=== PATIENT | male | born 1985 | race Caucasian/White ===

== ENCOUNTER 2019-10-16 22:28 | Emergency (ER) | payer SELFPAY ==
[2019-10-16] MEDS ORDERED: KETOROLAC 30 MG/ML INJ ONE (23:13)
--- NOTE | 2019-10-16 23:31 | EDPHYS ---
Physician Documentation [facility] Name: Luis Hayward Age: 34 yrs Sex: Male : 1985 Arrival Date: 10/16/2019 Time: 22:30 Bed 15 Private MD: ED Physician Paco Ritter HPI: 10/16 02:03 This 34 yrs old Male presents to ER via Ambulatory with complaints of Swollen tw4 Gums. 02:03 The patient presents with bleeding, pain, swelling. The problem is located in the upper tw4 left first bicuspid, upper left second bicuspid, upper left first molar and upper left second molar. Onset: The symptoms/episode began/occurred yesterday. Duration: The symptoms are continuous, and are steadily getting worse. Modifying factors: The symptoms are alleviated by nothing, the symptoms are aggravated by chewing, hot fluids. Associated signs and symptoms: The patient has no apparent associated signs or symptoms. Severity of symptoms: At their worst the symptoms were moderate, in the emergency department the symptoms are unchanged. The patient has not experienced similar symptoms in the past. Historical: - Allergies: 22:41 Naproxen; ea - PMHx: 22:41 scoliosis; ea - PSHx: 22:41 None; ea - Immunization history:: Adult Immunizations up to date. - Social history:: Smoking status: Patient reports the use of cigarette tobacco products, smokes one pack cigarettes per day. ROS: 10/16 02:03 Constitutional: Negative for fever, chills, and weight loss, Eyes: Negative for injury, tw4 pain, redness, and discharge. Cardiovascular: Negative for chest pain, palpitations, and edema, Respiratory: Negative for shortness of breath, cough, wheezing, and pleuritic chest pain, Abdomen/GI: Negative for abdominal pain, nausea, vomiting, diarrhea, and constipation, Back: Negative for injury and pain. ENT: Positive for dental pain, Gum pain Negative for drainage from ear(s), ear pain, foreign body sensation, hearing loss, pulling at ears, Teeth pain Exam: 02:03 Constitutional: This is a well developed, well nourished patient who is awake, alert, tw4 and in no acute distress. 02:03 MS/ Extremity: Pulses equal, no cyanosis. Neurovascular intact. Full, normal range of motion. Neuro: Awake and alert, GCS 15, oriented to person, place, time, and situation. Cranial nerves II-XII grossly intact. Motor strength 5/5 in all extremities. Sensory grossly intact. Cerebellar exam normal. Normal gait. 02:03 Head/face: Noted is swelling, that is mild, of the left cheek. 02:03 ENT: Dental exam: dental caries, that is moderate, specifically in the upper left cuspid (#11), upper left first bicuspid (#12), upper left second bicuspid (#13) and upper left first molar (#14), gum swelling, specifically in the upper left first bicuspid (#12), upper left second bicuspid (#13), upper left first molar (#14) and upper left second molar (#15). Vital Signs: 22:37 BP 142 / 95; Pulse 115; Resp 19; Temp 98.8; Pulse Ox 98% on R/A; Weight 81.65 kg; ea Height 5 ft. 9 in. (175.26 cm); 23:30 BP 120 / 67; Pulse 100; Resp 18; Pulse Ox 99% ; ea 22:37 Body Mass Index 26.58 (81.65 kg, 175.26 cm) ea MDM: 22:41 Patient medically screened. tw4 10/16 02:03 Differential diagnosis: dental caries, gingivitis. Data reviewed: vital signs, nurses tw4 notes. Counseling: I had a detailed discussion with the patient and/or guardian regarding: the historical points, exam findings, and any diagnostic results supporting the discharge/admit diagnosis. Medication response: Response to treatment: the patient's symptoms have mildly improved after treatment, and as a result, I will discharge patient. Special discussion: I discussed with the patient/guardian in detail that at this point there is no indication for admission to the hospital. It is understood, however, that if the symptoms persist or worsen the patient needs to return immediately for re-evaluation. Administered Medications: 23:06 Drug: TORadol 60 mg Route: IM; Site: right gluteus; ea 23:30 Follow up: Response: No adverse reaction; Pain is decreased ea 23:27 Drug: Cleocin 300 mg Route: PO; ea 23:30 Follow up: Response: No adverse reaction ea Disposition: 10/16/19 23:30 Discharged to Home. Impression: Gingivitis and periodontal diseases, Dental caries, unspecified. - Condition is Stable. - Discharge Instructions: Dental Caries, Adult, Dental Pain. - Prescriptions for Cleocin 300 mg Oral Capsule - take 1 capsule by ORAL route every 6 hours for 10 days; 40 capsule. Tylenol- Codeine #3 300-30 mg Oral Tablet - take 2 tablet by ORAL route every 6 hours As needed; 6 tablet. - Medication Reconciliation Form, Thank You Letter, Antibiotic Education, Prescription Opioid Use form. - Follow up: Private Physician; When: Upon discharge from the Emergency Department; Reason: Recheck today's complaints, Continuance of care. - Problem is new. - Symptoms have improved. Signatures: Qiana Valerio RN RN ea Wadley, Terrence, MD MD tw4 Corrections: (The following items were deleted from the chart) 23:42 23:30 10/16/2019 23:30 Discharged to Home. Impression: Gingivitis and periodontal ea diseases; Dental caries, unspecified. Condition is Stable. Forms are Medication Reconciliation Form, Thank You Letter, Antibiotic Education, Prescription Opioid Use. Follow up: Private Physician; When: Upon discharge from the Emergency Department; Reason: Recheck today's complaints, Continuance of care. Problem is new. Symptoms have improved. tw4
--- NOTE | 2019-10-16 23:31 | ER ---
Nurse's Notes [facility] Name: Luis Hayward Age: 34 yrs Sex: Male : 1985 Arrival Date: 10/16/2019 Time: 22:30 Bed 15 Private MD: Diagnosis: Gingivitis and periodontal diseases;Dental caries, unspecified Presentation: 22:37 Chief complaint: Patient states: Reports he broke out with sore in his mouth a few days ea ago, states "I think I have herpes, it's on my lip, in my mouth and in my cheek, I feel it's going to my brain". Coronavirus screen: The patient has NOT traveled to [place] in the past 14 days. Ebola Screen: No symptoms or risks identified at this time. Initial Sepsis Screen: Does the patient meet any 2 criteria? HR > 90 bpm. Does the patient have a suspected source of infection? No. Patient's initial sepsis screen is negative. Risk Assessment: Do you want to hurt yourself or someone else? Patient reports no desire to harm self or others. 22:37 Method Of Arrival: Ambulatory ea 22:37 Acuity: ALISIA 4 ea Triage Assessment: 22:42 General: Appears in no apparent distress. Behavior is calm, cooperative, appropriate ea for age. Pain: Denies pain. Historical: - Allergies: 22:41 Naproxen; ea - PMHx: 22:41 scoliosis; ea - PSHx: 22:41 None; ea - Immunization history:: Adult Immunizations up to date. - Social history:: Smoking status: Patient reports the use of cigarette tobacco products, smokes one pack cigarettes per day. Screenin:39 Abuse screen: Denies threats or abuse. Nutritional screening: No deficits noted. ea Tuberculosis screening: No symptoms or risk factors identified. Fall Risk None identified. Assessment: 22:39 General: Appears uncomfortable, Behavior is anxious, Reports pain and swelling of the fu left face. Pain: Complains of pain in left side of the face Pain does not radiate. Pain currently is 10 out of 10 on a pain scale. Quality of pain is described as pulsating, Pain began 2-3 days ago. Is continuous. Neuro: Level of Consciousness is awake, alert, obeys commands, Oriented to person, place, time, situation, Professor Of Management are equal bilaterally Moves all extremities. Cardiovascular: Denies chest pain, nausea, vomiting. Respiratory: Airway is patent Respiratory effort is even, unlabored, Respiratory pattern is regular, GI: No signs and/or symptoms were reported involving the gastrointestinal system. : No signs and/or symptoms were reported regarding the genitourinary system. EENT: Poor dentition noted. 23:39 Reassessment: Patient and/or family updated on plan of care and expected duration. Pain ea level reassessed. Patient is alert, oriented x 3, equal unlabored respirations, skin warm/dry/pink. Discharge instruction given to patient, verbalized the understanding of instruction. Pt left ED ambulatory accompanied, tolerated well. Vital Signs: 22:37 BP 142 / 95; Pulse 115; Resp 19; Temp 98.8; Pulse Ox 98% on R/A; Weight 81.65 kg; ea Height 5 ft. 9 in. (175.26 cm); 23:30 BP 120 / 67; Pulse 100; Resp 18; Pulse Ox 99% ; ea 22:37 Body Mass Index 26.58 (81.65 kg, 175.26 cm) ea ED Course: 22:30 Patient arrived in ED. cl3 22:36 Qiana Valerio, RN is Primary Nurse. ea 22:39 Harvinder Wall, RN is Primary Nurse. fu 22:39 Triage completed. ea 22:40 Patient has correct armband on for positive identification. Bed in low position. Call ea light in reach. Side rails up X2. 22:40 Arm band placed on right wrist. Patient placed in an exam room, on a stretcher, on ea pulse oximetry. 22:41 Paco Ritter MD is Attending Physician. tw4 23:41 No provider procedures requiring assistance completed. Patient did not have IV access ea during this emergency room visit. Administered Medications: 23:06 Drug: TORadol 60 mg Route: IM; Site: right gluteus; ea 23:30 Follow up: Response: No adverse reaction; Pain is decreased ea 23:27 Drug: Cleocin 300 mg Route: PO; ea 23:30 Follow up: Response: No adverse reaction ea Outcome: 23:30 Discharge ordered by . tw4 23:41 Discharged to home ambulatory. ea 23:41 Condition: stable 23:41 Discharge instructions given to patient, Instructed on discharge instructions, follow up and referral plans. medication usage, Demonstrated understanding of instructions, follow-up care, medications. 23:42 Patient left the ED. ea Signatures: Qiana Valerio RN Harvinder Shah ea, RN RN fu Wadley, Terrence, MD MD tw4 Real Collins cl3
[2019-10-16 23:52] VITALS: TEMP 98.8
[2019-10-16 23:57] VITALS: BP 120/67; O2SAT 99
== END 2019-10-16 23:42 | disposition home or self-care (01) ==
LOC: ER 22:28
DX: K05.10 Chronic gingivitis, plaque induced (principal); K05.6 Periodontal disease, unspecified; K02.9 Dental caries, unspecified
CPT/HCPCS: 96372; 99283

== ENCOUNTER 2019-11-07 21:50 | Emergency (ER) | payer SELFPAY ==
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
[2019-11-07 22:56] VITALS: BP 116/72; TEMP 99; O2SAT 95
== END 2019-11-07 22:49 | disposition left against medical advice (07) ==
LOC: ER 21:50
DX: R10.10 Upper abdominal pain, unspecified (principal); F17.210 Nicotine dependence, cigarettes, uncomplicated
CPT/HCPCS: 99282

== ENCOUNTER 2020-11-02 02:33 | Emergency (ER) | payer SELFPAY ==
[2020-11-02 03:18] LABS: Absolute Lymphocytes (CBC) 2.9 K/uL (0.7-4.9); Lymphocytes % 35.8 % (15.3-44.8); MPV 9.1 fL (7.6-11.3)
[2020-11-02] MEDS ORDERED: NA CHLORIDE 0.9% 1,000 ML ONE (03:31)
[2020-11-02 03:44] LABS: ALT/SGPT 16 U/L (12-78); AST/SGOT 8 U/L (15-37); Albumin 3.9 g/dL (3.4-5.0); BUN Blood Urea Nitrogen 10 mg/dL (7-18); Bicarbonate 30 mmol/L (21-32); Bilirubin Direct 0.1 mg/dL (0-0.2); Bilirubin Total 0.4 mg/dL (0.2-1.0); Glucose Level 100 mg/dL (74-106); Lipase 94 U/L (73-393); Potassium 4.2 mmol/L (3.5-5.1); Protein, Total 7.4 g/dL (6.4-8.2); Sodium Level 140 mmol/L (136-145)
[2020-11-02 03:45] LABS: Alkaline Phosphatase ND U/L (45-117)
[2020-11-02] MEDS ORDERED: ONDANSETRON 4 MG/2 ML VIAL ONE (03:50)
[2020-11-02] MEDS ORDERED: FAMOTIDINE 20 MG/2 ML VIAL IV ONE (03:50)
[2020-11-02] MEDS ORDERED: MORPHINE 2 MG/ML SYR ONE (03:50)
[2020-11-02 04:08] LABS: Barbiturates NEGATIVE (NEGATIVE); Benzodiazepines NEGATIVE (NEGATIVE); Cocaine NEGATIVE (NEGATIVE); METHAMPHETAM POSITIVE (NEGATIVE); Methadone NEGATIVE (NEGATIVE); Opiates NEGATIVE (NEGATIVE); Phencyclidine NEGATIVE (NEGATIVE); THC Cannibis POSITIVE (NEGATIVE)
[2020-11-02 04:28] LABS: Urine Blood NEGATIVE (NEG); Urine Glucose NEGATIVE (NEG); Urine Protein NEGATIVE (NEG); Urine Specific Gravity 1.025 (1.005-1.030); Urine pH 5.5 (5.0-7.0)
--- NOTE | 2020-11-02 04:36 | EDPHYS ---
Physician Documentation [facility] Name: Luis Hayward Age: 35 yrs Sex: Male : 1985 Arrival Date: 11/02/2020 Time: 02:35 Bed 19 Private MD: OPAL Physician Yosef Marquez HPI: 11/02 03:09 This 35 yrs old Male presents to ER via Ambulatory with complaints of pb Appendix Pain. 03:09 The patient presents with abdominal pain in the right upper quadrant, right lower pb quadrant. Onset: The symptoms/episode began/occurred just prior to arrival, this morning. The symptoms do not radiate. Associated signs and symptoms: none. The symptoms are described as sharp. Modifying factors: The symptoms are alleviated by nothing, the symptoms are aggravated by nothing. Severity of pain: At its worst the pain was moderate in the emergency department the pain has improved mildly. The patient has not experienced similar symptoms in the past. Historical: - Allergies: 02:43 Naproxen; iw - Home Meds: 02:43 None [Active]; iw - PMHx: 02:43 scoliosis; iw - PSHx: 02:43 None; iw - Immunization history:: Adult Immunizations Adult Immunizations up to date. - Social history:: Smoking status: Patient reports the use of cigarette tobacco products, smokes one pack cigarettes per day. - Family history:: not pertinent. ROS: 03:09 Constitutional: Negative for fever, chills, and weight loss, Eyes: Negative for injury, pb pain, redness, and discharge, ENT: Negative for injury, pain, and discharge, Neck: Negative for injury, pain, and swelling, Cardiovascular: Negative for chest pain, palpitations, and edema, Respiratory: Negative for shortness of breath, cough, wheezing, and pleuritic chest pain, Abdomen/GI: Negative for abdominal pain, nausea, vomiting, diarrhea, and constipation, Back: Negative for injury and pain, : Negative for injury, bleeding, discharge, and swelling, MS/Extremity: Negative for injury and deformity, Skin: Negative for injury, rash, and discoloration, Psych: Negative for depression, anxiety, suicide ideation, homicidal ideation, and hallucinations, Allergy/Immunology: Negative for hives, rash, and allergies, Endocrine: Negative for neck swelling, polydipsia, polyuria, polyphagia, and marked weight changes, Hematologic/Lymphatic: Negative for swollen nodes, abnormal bleeding, and unusual bruising. 03:09 Abdomen/GI: Positive for abdominal pain, abdominal distension, of the right upper quadrant and right lower quadrant. Exam: 03:11 Constitutional: This is a well developed, well nourished patient who is awake, alert, pb and in no acute distress. Head/Face: Normocephalic, atraumatic. Eyes: Pupils equal round and reactive to light, extra-ocular motions intact. Lids and lashes normal. Conjunctiva and sclera are non-icteric and not injected. Cornea within normal limits. Periorbital areas with no swelling, redness, or edema. ENT: Nares patent. No nasal discharge, no septal abnormalities noted. Tympanic membranes are normal and external auditory canals are clear. Oropharynx with no redness, swelling, or masses, exudates, or evidence of obstruction, uvula midline. Mucous membranes moist. Neck: Trachea midline, no thyromegaly or masses palpated, and no cervical lymphadenopathy. Supple, full range of motion without nuchal rigidity, or vertebral point tenderness. No Meningismus. Chest/axilla: Normal chest wall appearance and motion. Nontender with no deformity. No lesions are appreciated. Cardiovascular: Regular rate and rhythm with a normal S1 and S2. No gallops, murmurs, or rubs. Normal PMI, no JVD. No pulse deficits. Respiratory: Lungs have equal breath sounds bilaterally, clear to auscultation and percussion. No rales, rhonchi or wheezes noted. No increased work of breathing, no retractions or nasal flaring. Back: No spinal tenderness. No costovertebral tenderness. Full range of motion. Skin: Warm, dry with normal turgor. Normal color with no rashes, no lesions, and no evidence of cellulitis. MS/ Extremity: Pulses equal, no cyanosis. Neurovascular intact. Full, normal range of motion. Neuro: Awake and alert, GCS 15, oriented to person, place, time, and situation. Cranial nerves II-XII grossly intact. Motor strength 5/5 in all extremities. Sensory grossly intact. Cerebellar exam normal. Normal gait. Psych: Awake, alert, with orientation to person, place and time. Behavior, mood, and affect are within normal limits. 03:11 Abdomen/GI: Bowel sounds: normal, Palpation: mild abdominal tenderness, in the right upper quadrant and right lower quadrant, Liver: no appreciated palpable abnormalities, Hernia: not appreciated. Vital Signs: 02:41 BP 138 / 110; Pulse 127; Resp 16 S; Temp 99.2; Pulse Ox 100% on R/A; Weight 81.65 kg; iw Height 5 ft. 9 in. (175.26 cm); Pain 10/10; 02:57 BP 118 / 80 RA Sitting (man/lg); Pulse 115; Resp 20; Temp 98.6(O); Pulse Ox 100% on R/A;jb5 04:46 BP 116 / 78; Pulse 98; Resp 18; Temp 98; Pulse Ox 100% on R/A; mg2 02:41 Body Mass Index 26.58 (81.65 kg, 175.26 cm) iw MDM: 02:51 Patient medically screened. pb 03:12 Differential diagnosis: gastritis, Irritable bowel syndrome, non-specific abd pain, pb pancreatitis, Peptic Ulcer Disease, Pyelonephritis, urinary tract infection. Data reviewed: vital signs, nurses notes, lab test result(s), radiologic studies, CT scan. Data interpreted: potline monitor: rate is 115 beats/min, rhythm is regular, Pulse oximetry: on room air is 100 %. Test interpretation: by ED physician or midlevel provider:. Counseling: I had a detailed discussion with the patient and/or guardian regarding: the historical points, exam findings, and any diagnostic results supporting the discharge/admit diagnosis, lab results, radiology results, the need for outpatient follow up, for definitive care, 11/02 02:45 Order name: Basic Metabolic Panel; Complete Time: 04:07 mg2 11/02 02:45 Order name: CBC with Diff; Complete Time: 04:07 mg2 11/02 02:45 Order name: Hepatic Function; Complete Time: 04:07 mg2 11/02 02:45 Order name: Lipase; Complete Time: 04:07 mg2 11/02 03:08 Order name: ETOH Level; Complete Time: 04:07 pb 11/02 03:08 Order name: UDS; Complete Time: 04:32 pb 11/02 02:45 Order name: IV Saline Lock; Complete Time: 02:53 mg2 11/02 03:08 Order name: CT Abd/Pelvis - IV Contrast Only pb 11/02 03:25 Order name: Urine Dipstick--Ancillary (enter results) mw2 11/02 04:29 Order name: Urine Dipstick-Ancillary; Complete Time: 04:32 EDMS 11/02 02:45 Order name: Labs collected and sent; Complete Time: 02:53 mg2 11/02 03:08 Order name: Urine Dipstick-Ancillary (obtain specimen); Complete Time: 03:26 pb Administered Medications: 03:12 Drug: NS 0.9% 1000 ml Route: IV; Rate: 1 bolus; Site: left antecubital; mg2 04:30 Follow up: Response: No adverse reaction; IV Status: Completed infusion; IV Intake: mg2 1000ml 03:37 Drug: Pepcid 20 mg Route: IVP; Site: left antecubital; mg2 04:30 Follow up: Response: No adverse reaction mg2 03:37 Drug: Zofran (Ondansetron) 4 mg Route: IVP; Site: left antecubital; mg2 04:30 Follow up: Response: No adverse reaction mg2 03:37 Drug: morphine 2 mg Route: IVP; Site: left antecubital; mg2 04:30 Follow up: Response: No adverse reaction mg2 Disposition: 11/02/20 04:36 Discharged to Home. Impression: Abdominal tenderness, Abuse of non-psychoactive substances. - Condition is Stable. - Discharge Instructions: Abdominal Pain, Adult, Substance Use Disorder, Abdominal Pain, Adult, [id number], Stimulant Use Disorder-Methamphetamines. - Prescriptions for Bentyl 20 mg Oral Tablet - take 1 tablet by ORAL route every 6 hours As needed; 20 tablet. Pepcid 20 mg Oral Tablet - take 1 tablet by ORAL route every 12 hours for 10 days; 20 tablet. - Medication Reconciliation Form, Thank You Letter, Antibiotic Education, Prescription Opioid Use form. - Follow up: Private Physician; When: 2 - 3 days; Reason: Recheck today's complaints, Continuance of care, Re-evaluation by your physician. - Problem is new. - Symptoms have improved. Signatures: Dispatcher [employer] EDYosef Ahmadi MD MD cha Williams, Irene, RN RN iw Krishan Owen, BARN MANAGER-C BARN MANAGER-Cla1 Vinnie Dorsey RN RN mg2 Corrections: (The following items were deleted from the chart) 03:11 03:09 Neuro: Positive for pb pb 04:47 04:36 11/02/2020 04:36 Discharged to Home. Impression: Abdominal tenderness; Abuse of mg2 non-psychoactive substances. Condition is Stable. Forms are Medication Reconciliation Form, Thank You Letter, Antibiotic Education, Prescription Opioid Use. Follow up: Private Physician; When: 2 - 3 days; Reason: Recheck today's complaints, Continuance of care, Re-evaluation by your physician. Problem is new. Symptoms have improved. pb
--- NOTE | 2020-11-02 04:36 | ER ---
Nurse's Notes [facility] Name: Luis Hayward Age: 35 yrs Sex: Male : 1985 Arrival Date: 11/02/2020 Time: 02:35 Bed 19 Private MD: Diagnosis: Abdominal tenderness;Abuse of non-psychoactive substances Presentation: 11/02 02:41 Chief complaint: Patient states: sudden RLQ pain X 30 minutes, sharp pain, thinks his iw appendix burst. Coronavirus screen: At this time, the client does not indicate any symptoms associated with coronavirus-19. Ebola Screen: Patient negative for fever greater than or equal to 101.5 degrees Fahrenheit, and additional compatible Ebola Virus Disease symptoms Patient denies exposure to infectious person. Patient denies travel to an Ebola-affected area in the 21 days before illness onset. No symptoms or risks identified at this time. Initial Sepsis Screen: Does the patient meet any 2 criteria? No. Patient's initial sepsis screen is negative. Does the patient have a suspected source of infection? No. Patient's initial sepsis screen is negative. Risk Assessment: Do you want to hurt yourself or someone else? Patient reports no desire to harm self or others. Onset of symptoms was November 02, 2020. 02:41 Method Of Arrival: Ambulatory iw 02:41 Acuity: ALISIA 3 iw Historical: - Allergies: 02:43 Naproxen; iw - Home Meds: 02:43 None [Active]; iw - PMHx: 02:43 scoliosis; iw - PSHx: 02:43 None; iw - Immunization history:: Adult Immunizations Adult Immunizations up to date. - Social history:: Smoking status: Patient reports the use of cigarette tobacco products, smokes one pack cigarettes per day. - Family history:: not pertinent. Screenin:28 Abuse screen: Denies threats or abuse. Denies injuries from another. Nutritional mg2 screening: No deficits noted. Tuberculosis screening: No symptoms or risk factors identified. Fall Risk IV access (20 points). Assessment: 03:26 General: Appears in no apparent distress. comfortable, Behavior is calm, cooperative. mg2 Pain: Complains of pain in abdomen Pain radiates to abdomen Pain Quality of pain is described as aching. Neuro: Level of Consciousness is awake, alert, obeys commands, Oriented to person, place, time, situation. Cardiovascular: Capillary refill < 3 seconds Patient's skin is warm and dry. Respiratory: Airway is patent Respiratory effort is even, unlabored, Respiratory pattern is regular, symmetrical. GI: Reports lower abdominal pain. : Reports takes long time to void approx 10 mins. EENT: No signs and/or symptoms were reported regarding the EENT system. Derm: Skin is intact, is healthy with good turgor, Skin is pink, warm \T\ dry. normal. Musculoskeletal: Circulation, motion, and sensation intact. Capillary refill < 3 seconds. Vital Signs: 02:41 BP 138 / 110; Pulse 127; Resp 16 S; Temp 99.2; Pulse Ox 100% on R/A; Weight 81.65 kg; iw Height 5 ft. 9 in. (175.26 cm); Pain 10/10; 02:57 BP 118 / 80 RA Sitting (man/lg); Pulse 115; Resp 20; Temp 98.6(O); Pulse Ox 100% on R/A;jb5 04:46 BP 116 / 78; Pulse 98; Resp 18; Temp 98; Pulse Ox 100% on R/A; mg2 02:41 Body Mass Index 26.58 (81.65 kg, 175.26 cm) iw ED Course: 02:35 Patient arrived in ED. cl3 02:43 Triage completed. iw 02:43 Arm band placed on. iw 02:45 Vinnie Dorsey, RN is Primary Nurse. mg2 02:45 Yosef Marquez MD is Attending Physician. pb 02:57 Inserted saline lock: 20 gauge in left antecubital area, using aseptic technique. Blood jb5 collected. 03:00 Basic Metabolic Panel Sent. jb5 03:00 CBC with Diff Sent. jb5 03:00 Hepatic Function Sent. jb5 03:00 Lipase Sent. jb5 03:07 Basic Metabolic Panel Sent. jb5 03:07 CBC with Diff Sent. jb5 03:07 Hepatic Function Sent. jb5 03:07 Lipase Sent. jb5 03:28 Patient has correct armband on for positive identification. mg2 03:28 No provider procedures requiring assistance completed. mg2 04:18 CT Abd/Pelvis - IV Contrast Only In Process Unspecified. EDMS 04:46 IV discontinued, intact, bleeding controlled, No redness/swelling at site. Pressure mg2 dressing applied. Administered Medications: 03:12 Drug: NS 0.9% 1000 ml Route: IV; Rate: 1 bolus; Site: left antecubital; mg2 04:30 Follow up: Response: No adverse reaction; IV Status: Completed infusion; IV Intake: mg2 1000ml 03:37 Drug: Pepcid 20 mg Route: IVP; Site: left antecubital; mg2 04:30 Follow up: Response: No adverse reaction mg2 03:37 Drug: Zofran (Ondansetron) 4 mg Route: IVP; Site: left antecubital; mg2 04:30 Follow up: Response: No adverse reaction mg2 03:37 Drug: morphine 2 mg Route: IVP; Site: left antecubital; mg2 04:30 Follow up: Response: No adverse reaction mg2 Intake: 04:30 IV: 1000ml; Total: 1000ml. mg2 Outcome: 04:36 Discharge ordered by . pb 04:47 Discharged to home ambulatory. mg2 04:47 Condition: stable 04:47 Discharge instructions given to patient, Instructed on discharge instructions, follow up and referral plans. medication usage, Demonstrated understanding of instructions, follow-up care, medications, Prescriptions given X 2. 04:47 Patient left the ED. mg2 Signatures: Dispatcher [employer] EDMS Yosef Marquez MD MD cha Williams, Irene, RN RN iw Alysha Farah jb5 Vinnie Dorsey RN RN mg2 Real Collins cl3 Corrections: (The following items were deleted from the chart) 02:44 02:41 Pulse 127bpm; Resp 16bpm; Spontaneous; Pulse Ox 100% RA; Temp 99.2F; 81.65 kg; iw Height 5 ft. 9 in.; BMI: 26.5; Pain 10/10; iw
[2020-11-02 05:04] VITALS: O2SAT 100
[2020-11-02 05:08] VITALS: BP 116/78; TEMP 98
--- NOTE | 2020-11-02 10:15 | RAD REPORT ---
EXAM DESCRIPTION: CT Abdomen and Pelvis COMPARISON: None. CLINICAL HISTORY: [facility] MAIN ABD PAIN TECHNIQUE: CT of the abdomen and pelvis was acquired with IV contrast material. Coronal and sagitt al reconstructions were obtained. Automated exposure control was utilized on this examination as a dose lowering technique. FINDINGS: Lung bases: Clear. Liver: Normal. Gallbladder and biliary: Decompressed gallbladder. Unremarkable biliary tree. Pancreas: Normal. Spleen: Normal. Adrenal glands: Normal adrenal glands. Kidneys: Normal right kidney. Small left renal peripelvic cyst. Stomach and Small Bowel: The stomach is distended with ingested material. Urinary bladder: Normal. Prostate/Male Urogenital: Normal. Colon and Appendix: The colon is unremarkable. No evidence of appendicitis. Retroperitoneum and lymph nodes: Normal. Vascular: Normal. Peritoneal cavity: No ascites or free air. Musculoskeletal and soft tissues: Soft tissues are unremarkable. No aggressive bone lesions. No com pression fracture. IMPRESSION: No acute intra-abdominal abnormality. Electronically signed by: Bubba Siddiqui MD 11/02/2020 4:29 AM CDT No acute intra-abdominal abnormality. Due to temporary technical issues with the PACS/Fluency reporting system, reports are being Signed by the in house radiologist without review as a courtesy to ensure prompt reporting. The inter preting radiologist is fully responsible for the content of the report.
== END 2020-11-02 04:47 | disposition home or self-care (01) ==
LOC: ER 02:33
DX: F55.8 Abuse of other non-psychoactive substances (principal); F17.210 Nicotine dependence, cigarettes, uncomplicated; Z88.5 Allergy status to narcotic agent
CPT/HCPCS: 36415; 74177; 80048; 80076; 80307; 80320; 81003; 83690; 85025; 96361; 96374; 96375; 99284; J2270; J2405; J7030; Q9967

== ENCOUNTER 2022-07-11 20:18 | Emergency (ER) | payer SELFPAY ==
--- NOTE | 2022-07-11 20:39 | ER ---
Nurse's Notes [facility] Name: Luis Hayward Age: 36 yrs Sex: Male : 1985 Arrival Date: 07/11/2022 Time: 20:21 Bed 18 Private MD: Diagnosis: Cellulitis of umbilicus Presentation: 07/11 20:23 Chief complaint: Patient states: "I have blood and mess coming out from my belly as6 button. It's been going on for months now. It can't be normal. It hurts". Coronavirus screen: At this time, the client does not indicate any symptoms associated with coronavirus-19. Ebola Screen: No symptoms or risks identified at this time. Initial Sepsis Screen: Does the patient meet any 2 criteria? No. Patient's initial sepsis screen is negative. Does the patient have a suspected source of infection? No. Patient's initial sepsis screen is negative. Risk Assessment: Do you want to hurt yourself or someone else? Patient reports no desire to harm self or others. Onset of symptoms is unknown. 20:23 Method Of Arrival: Ambulatory as6 20:23 Acuity: ALISIA 4 as6 Historical: - Allergies: 20:26 Naproxen; as6 - Home Meds: 20:26 None [Active]; as6 - PMHx: 20:26 scoliosis; as6 - PSHx: 20:26 ear; as6 - Immunization history:: Client reports receiving the 2nd dose of the Covid vaccine, moderna Flu vaccine is not up to date. - Social history:: Smoking status: Patient reports the use of cigarette tobacco products, smokes one pack cigarettes per day. Screenin:56 Abuse screen: Denies threats or abuse. Nutritional screening: No deficits noted. kr3 Tuberculosis screening: No symptoms or risk factors identified. Fall Risk None identified. Assessment: 20:33 General: Appears in no apparent distress. comfortable, Behavior is calm, cooperative, kr3 anxious. Pain: Complains of pain in abdomen. GI: Abd is soft and non tender X 4 quads. 20:34 Neuro: Level of Consciousness is awake, alert, obeys commands. Cardiovascular: kr3 Patient's skin is warm and dry. Respiratory: Airway is patent Respiratory effort is even, unlabored, Respiratory pattern is regular, symmetrical. GI: Abdomen is flat, non-distended. : No signs and/or symptoms were reported regarding the genitourinary system. EENT: No signs and/or symptoms were reported regarding the EENT system. Derm: Reports pus and blood coming from umbilicus. Musculoskeletal: Circulation, motion, and sensation intact. 20:57 GI:. kr3 Vital Signs: 20:23 BP 115 / 78; Pulse 103; Resp 18 S; Temp 98.3(O); Pulse Ox 99% on R/A; Weight 68.04 kg as6 (R); Height 5 ft. 9 in. (175.26 cm) (R); Pain 6/10; 20:37 BP 118 / 71; Pulse 101; Resp 18; Pulse Ox 100% on R/A; kr3 20:52 BP 117 / 69; Pulse 98; Pulse Ox 100% on R/A; kr3 20:23 Body Mass Index 22.15 (68.04 kg, 175.26 cm) as6 ED Course: 20:21 Patient arrived in ED. ja2 20:26 Triage completed. as6 20:27 Arm band placed on. as6 20:29 Davidson Pena PA is PHCP. [facility] 20:29 Steven Diaz MD is Attending Physician. wilma 20:30 Bed in low position. Call light in reach. Side rails up X 1. kr3 20:38 Bailey Luke, SHOLA is Primary Nurse. kr3 20:57 No provider procedures requiring assistance completed. Patient did not have IV access kr3 during this emergency room visit. Administered Medications: No medications were administered Medication: 20:57 VIS not applicable for this client. kr3 Outcome: 20:38 Discharge ordered by . jm 20:56 Patient left the ED. kr3 20:57 Discharged to home ambulatory. kr3 20:57 Condition: stable 20:57 Discharge instructions given to patient, Instructed on discharge instructions, follow up and referral plans. medication usage, Demonstrated understanding of instructions, follow-up care, medications, Prescriptions given X 2. Signatures: Davidson Pena PA PA jmm Alexander, Jessica ja2 Aakash Lozano RN RN as6 Bailey Luke RN RN kr3
--- NOTE | 2022-07-11 20:39 | EDPHYS ---
Physician Documentation [facility] Name: Luis Hayward Age: 36 yrs Sex: Male : 1985 Arrival Date: 07/11/2022 Time: 20:21 Bed 18 Private MD: ED Physician Steven Diaz Historical: - Allergies: 07/11 20:26 Naproxen; as6 - Home Meds: 20:26 None [Active]; as6 - PMHx: 20:26 scoliosis; as6 - PSHx: 20:26 ear; as6 - Immunization history:: Client reports receiving the 2nd dose of the Covid vaccine, moderna Flu vaccine is not up to date. - Social history:: Smoking status: Patient reports the use of cigarette tobacco products, smokes one pack cigarettes per day. Vital Signs: 20:23 BP 115 / 78; Pulse 103; Resp 18 S; Temp 98.3(O); Pulse Ox 99% on R/A; Weight 68.04 kg as6 (R); Height 5 ft. 9 in. (175.26 cm) (R); Pain 6/10; 20:37 BP 118 / 71; Pulse 101; Resp 18; Pulse Ox 100% on R/A; kr3 20:52 BP 117 / 69; Pulse 98; Pulse Ox 100% on R/A; kr3 20:23 Body Mass Index 22.15 (68.04 kg, 175.26 cm) as6 MDM: 20:37 Patient medically screened. [facility] 20:37 Data reviewed: vital signs, nurses notes. Counseling: I had a detailed discussion with wilma the patient and/or guardian regarding: the historical points, exam findings, and any diagnostic results supporting the discharge/admit diagnosis, the need for outpatient follow up, to return to the emergency department if symptoms worsen or persist or if there are any questions or concerns that arise at home. Administered Medications: No medications were administered Disposition: 22:44 Co-signature as Attending Physician, Steven Diaz MD. rn Disposition Summary: 07/11/22 20:38 Discharge Ordered Location: Home [facility] Condition: Stable [facility] Diagnosis - Cellulitis of umbilicus [facility] Followup: [facility] - With: Private Physician - When: 2 - 3 days - Reason: Recheck today's complaints, Continuance of care, Re-evaluation by your physician Discharge Instructions: - Discharge Summary Sheet [facility] - Cellulitis, Adult [facility] Forms: - Medication Reconciliation Form [facility] - Thank You Letter [facility] - Antibiotic Education [facility] - Prescription Opioid Use [facility] Prescriptions: - mupirocin 2 % Topical ointment - apply 1 application by TOPICAL route 3 times per day for 10 days; 1 tube; jmm Refills: 0, Product Selection Permitted - Cephalexin 500 mg Oral Capsule - take 1 capsule by ORAL route every 6 hours for 10 days; 40 capsule; Refills: 0, [facility] Product Selection Permitted Addendum: 07/13/2022 08:58 Addendum: HPI. This is a 36-year-old male with history of scoliosis presents [facility] with complaints of irritation to his umbilicus. Patient states that symptoms began approximately 8 months and been intermittent. Patient became concerned when he saw some blood at the end of a Q-tip while cleaning the area. Also states some yellow drainage from the area. Denies fever. Patient states also having intermittent abdominal pain. Review of systems. Positive for abdominal pain otherwise negative. Physical exam. General appearance is nontoxic, neck is supple, cardio regular rate and rhythm, respirations nonlabored, abdomen is nontender to palpation, patient moves all extremities, psych behavior is calm, skin mild to erythema noted to the umbilicus, no purulent drainage appreciated, neuro alert and orient x3. MDM. Patient is alert nontoxic in appearance in the ED. Abdomen is nontender to palpation, I do not currently suspect an acute intra-abdominal process. Symptoms of been ongoing for approximately 8 months. Will treat with topical and oral antibiotics. Patient otherwise given strict return precautions. Patient understood and agrees to plan of care.. Signatures: Davidson Pena PA PA jmm Nieto, Roman, MD MD rn Aakash Lozano RN RN as6
[2022-07-11 21:16] VITALS: TEMP 98.3
[2022-07-11 21:18] VITALS: O2SAT 100
[2022-07-11 21:19] VITALS: BP 117/69
== END 2022-07-11 20:56 | disposition home or self-care (01) ==
LOC: ER 20:18
DX: L03.316 Cellulitis of umbilicus (principal)
CPT/HCPCS: 99282

== ENCOUNTER 2025-01-08 16:22 | Emergency (ER) | payer SELFPAY ==
[2025-01-08] MEDS ORDERED: CEFTRIAXONE 1000 MG/VIAL ONE (17:20)
[2025-01-08] MEDS ORDERED: FAMOTIDINE 20 MG/2 ML VIAL IV ONE (17:21)
[2025-01-08] MEDS ORDERED: ASPIRIN 81 MG CHEWABLE TABLET ONE (17:21)
[2025-01-08] MEDS ORDERED: NA CHLORIDE 0.9% 1,000 ML ONE (17:21)
[2025-01-08 17:52] LABS: Absolute Eosinophils 0.2 K/uL (0-0.5); Absolute Lymphocytes (CBC) 2.4 K/uL (0.7-4.9); Absolute Monocytes 0.9 K/uL (0.1-1.3); Absolute Neutrophil 7.2 K/uL (1.8-8.0); Basophils % 0.4 % (0-1.3); Eosinophils % 1.6 % (0-4.4); Hematocrit 44.6 % (39.6-49.0); Hemoglobin 15.3 g/dL (13.6-17.9); Lymphocytes % 22.1 % (15.3-44.8); MCH 31.3 pg (27.0-35.0); MCHC 34.3 g/dL (32.0-36.0); MCV 91.1 fL (80-100); MPV 8.5 fL (7.6-11.3); Monocytes % 8.2 % (3.3-12.3); Neutrophils % 67.7 % (41.7-73.7); Nucleated Red Blood Cells % 0.2 % (0-0); Platelets 268 thou/uL (152-406); RBC Red Blood Cell Count 4.89 M/uL (4.33-5.43); Red Cell Distribution Width 14.4 % (12.1-15.2)
[2025-01-08] MEDS ORDERED: AZITHROMYCIN 250 MG TAB ONE (17:56)
--- NOTE | 2025-01-08 18:00 | RAD REPORT ---
EXAM: Chest Single View HISTORY: 39 years Male CONGESTION COMPARISON: 01/23/2014 FINDINGS: LUNGS/PLEURA: The lungs are clear. No pleural effusions or pneumothorax. No pulmonary edema. CARDIAC/MEDIASTINUM: The cardiac silhouette is within normal limits. UPPER ABDOMEN: No significant abnormality. BONES: No acute abnormality. LINES/TUBES/OTHER: N/A IMPRESSION: No evidence of acute cardiopulmonary disease. No significant change from prior.
[2025-01-08 18:13] LABS: ALT/SGPT 20 U/L (16-61); AST/SGOT 12 U/L (15-37); Albumin 3.9 g/dL (3.4-5.0); Albumin/Globulin Ratio 0.9 (1.1-1.8); Alkaline Phosphatase 74 U/L (45-117); Anion Gap 8.9 mEq/L (5.0-15.0); BUN Blood Urea Nitrogen 10 mg/dL (7-18); Bicarbonate 29 mEq/L (21-32); Bilirubin Direct 0.3 mg/dL (0-0.2); Bilirubin Indirect, Calculated 0.7 mg/dL (0.2-0.8); Globulin 4.2 g/dL (2.3-3.5); Glomerular Filtration Rate 114 ml/min (=/>90); Glucose Level 88 mg/dL (74-106); Magnesium 2.1 mg/dL (1.6-2.4); NT PRO-BNP 15 pg/mL (<125); Potassium 3.9 mEq/L (3.5-5.1); Protein, Total 8.1 g/dL (6.4-8.2); Sodium Level 136 mEq/L (136-145)
[2025-01-08 18:14] LABS: Influenza A Ag Negative; Influenza B Ag Negative; SARS-CoV-2 Antigen Rapid Res Negative (Negative)
[2025-01-08] MEDS ORDERED: LEVALBUTEROL 1.25 MG/3 ML NEB ONE (18:16)
[2025-01-08] MEDS ORDERED: dexAMETHasone 10 MG/ML VIAL ONE (18:16)
[2025-01-08] MEDS ORDERED: predniSONE 10 MG TAB ONE (18:16)
[2025-01-08] MEDS ORDERED: IPRATROPIUM BROM 0.5MG/2.5ML ONE (18:17)
[2025-01-08 18:19] LABS: Troponin High Sensitivity < 3.0 pg/mL (<58.9)
--- NOTE | 2025-01-08 18:41 | RAD REPORT ---
EXAMINATION: CTA CHEST PE CLINICAL INDICATION: Male, 39 years old. Chest pain;Dyspnea TECHNIQUE: This examination was performed according to an angiographic protocol with 3D post-processi ng. This involves 3D reconstructions, MIPs, volume rendered images and/or shaded surface rendering. One or more of the following dose reduction techniques were used: Automated exposure control, adjustm ent of the mA and/or kV according to patient size, and/or iterative reconstruction. Unless otherwise specified, incidental findings do not require dedicated imaging follow-up. [id number]. COMPARISON: Same day chest radiograph. FINDINGS: LOWER NECK: Visualized thyroid gland and soft tissues are normal. MEDIASTINUM AND LYMPH NODES: No mediastinal mass or fluid collection. Normal size mediastinal, hilar, and axillary lymph nodes. THORACIC AORTA: No thoracic aortic aneurysm. PULMONARY ARTERIES: Caliber is within normal limits. HEART: Normal heart size. No coronary calcifications.No significant pericardial effusion. LUNGS AND AIRWAYS: Airways are clear. No evidence of airspace or interstitial process. No suspicious and/or stable pulmonary nodules. PLEURA: No pleural effusions. No pneumothorax. OSSEOUS STRUCTURES AND CHEST WALL: No fracture or suspicious osseous lesions. UPPER ABDOMEN: No acute abnormalities. IMPRESSION: Negative for pulmonary embolism. No acute findings in the chest.
--- NOTE | 2025-01-08 18:53 | ER ---
Nurse's Notes [facility] Name: Luis Hayward Age: 39 yrs Sex: Male : 1985 Arrival Date: 01/08/2025 Time: 16:22 Bed 19 Private MD: Diagnosis: Tobacco abuse counseling;Tobacco use;Acute bronchospasm;Acute upper respiratory infection, unspecified;Pleurisy Presentation: 01/08 16:49 Chief complaint: Patient states: left sided upper back pain that radiates to the left me1 upper chest, started 3 days ago. Denies injury. Pain 10/10, sharp. SOB. Pain is worse with inspiration. Denies fever, Denies cough or recent illness. 16:51 Coronavirus screen: Vaccine status: Patient reports receiving the 2nd dose of the covid me1 vaccine. Ebola Screen: No symptoms or risks identified at this time. Initial Sepsis Screen: Does the patient meet any 2 criteria? No. Patient's initial sepsis screen is negative. Does the patient have a suspected source of infection? No. Patient's initial sepsis screen is negative. Risk Assessment: Do you want to hurt yourself or someone else? Patient reports no desire to harm self or others. Onset of symptoms was January 05, 2025. 16:51 Method Of Arrival: Amb[place] [facility] [place] 16:51 Acuity: ALISIA 3 me1 Historical: - Allergies: 16:53 Naproxen; me1 - PMHx: 16:53 scoliosis; me1 - PSHx: 16:53 ear; me1 - Immunization history:: Adult Immunizations up to date. - Infectious Disease History:: Denies. - Social history:: Smoking status: Patient reports the use of cigarette tobacco products, smokes one pack cigarettes per day. - Family history:: not pertinent. Screenin:[facility] ED Fall Risk Assessment (Adult) History of falling in the last 3 months, mb9 including since admission No falls in past 3 months (0 pts) Confusion or Disorientation No (0 pts) Intoxicated or Sedated No (0 pts) Impaired Gait No (0 pts) Mobility Assist Device Used No (0 pt) Altered Elimination No (0 pt) Score/Fall Risk Level 0 - 2 = Low Risk Oriented to surroundings, Maintained a safe environment, Educated pt \T\ family on fall prevention, incl call for assistance when getting out of bed. Abuse screen: Denies threats or abuse. Nutritional screening: No deficits noted. Tuberculosis screening: No symptoms or risk factors identified. Assessment: 17:35 General: Appears in no apparent distress. Behavior is cooperative, anxious. mb9 17:35 Pain: Complains of pain in chest Pain radiates to right arm and left arm. Neuro: mb9 [place] Agitation-Sedation Scale (RASS): 0 - Alert and Calm Level of Consciousness is awake, alert, obeys commands, Oriented to person, place, time, situation, Appropriate for age. Cardiovascular: Heart tones S1 S2 present Patient's skin is warm and dry. Rhythm is regular. Respiratory: Reports shortness of breath at rest Airway is patent Respiratory effort is even, unlabored, Respiratory pattern is regular, symmetrical, Breath sounds are clear bilaterally. GI: No signs and/or symptoms were reported involving the gastrointestinal system. : No signs and/or symptoms were reported regarding the genitourinary system. EENT: No signs and/or symptoms were reported regarding the EENT system. Derm: Skin is pink, warm \T\ dry. Musculoskeletal: Range of motion: intact in all extremities. 19:10 Reassessment: Patient appears in no apparent distress at this time. km10 Vital Signs: 16:51 BP 110 / 88; Pulse 85; Resp 17; Temp 98.1; Pulse Ox 99% ; Weight 79.38 kg; Height 5 ft. me1 9 in. ; Pain 10/10; 18:24 BP 126 / 92; Pulse 83; Resp 16; Pulse Ox 100% on R/A; mb9 16:51 Body Mass Index 25.84 (79.38 kg, 175.26 cm) me1 16:51 Pain Scale: Adult me1 ED Course: 16:25 Patient arrived in ED. im 16:45 Yosef Marquez MD is Attending Physician. [facility] 16:53 Triage completed. me1 16:53 Arm band placed on Patient placed in waiting room. me1 17:30 Initial lab(s) drawn, by me, sent to lab. EKG done, by ED staff, reviewed by Yosef Marquez MD. Inserted saline lock: 18 gauge in left antecubital area, using aseptic technique. Blood collected. Flushed with 10 mL NS. 17:54 XRAY Chest (1 view) In Process Unspecified. EDMS 17:57 Priscila Downey SHOLA is Primary Nurse. mb9 17:59 Placed in gown. Bed in low position. Call light in reach. Side rails up X 1. Provided mb9 Education on: press call light if needing anything. Client placed on continuous cardiac and pulse oximetry monitoring. NIBP monitoring applied. color television console monitor on. 17:59 No provider procedures requiring assistance completed. mb9 18:35 CT Chest For PE Angio In Process Unspecified. EDMS 18:52 Sami Sebastian DO is Referral Physician. pb 18:52 Manan Gastelum MD is Referral Physician. pb 19:13 IV discontinued, intact, bleeding controlled, No redness/swelling at site. Pressure km10 dressing applied. Administered Medications: 17:50 Drug: Famotidine IVP 20 mg IVP once; dilute with 10 mL 0.9% NaCl; give over 2 minutes mb9 Route: IVP; Site: left antecubital; 18:04 Follow up: Response: No adverse reaction mb9 17:59 Drug: NS 0.9% IV 1000 ml IV at 1000 ml once; to be given as a bolus over 60 minutes mb9 Route: IV; Rate: 1000 ml; Site: left antecubital; 18:27 Follow up: Response: No adverse reaction; IV Status: Completed infusion mb9 17:59 Drug: Rocephin IV 1 grams IV at per protocol once; Given slow IV push per pharmacy mb9 instructions Route: IV; Rate: per protocol; Site: left antecubital; 18:32 Follow up: Response: No adverse reaction; IV Status: Completed infusion mb9 17:59 Drug: Aspirin PO Chewable Tablet 81 mg PO once Route: PO; mb9 18:05 Follow up: Response: No adverse reaction mb9 18:04 Drug: AZITHromycin PO 500 mg PO once Route: PO; mb9 18:27 Follow up: Response: No adverse reaction mb9 18:22 Drug: Decadron - Dexamethasone IVP 10 mg IVP once Route: IVP; Site: left antecubital; mb9 18:49 Follow up: Response: No adverse reaction mb9 18:49 Drug: Levalbuterol Inhalation 3.75 mg Inhalation once Route: Inhalation; mb9 18:49 Drug: Ipratropium Inhalation Aerosol 0.5 mg Inhalation once Route: Inhalation; mb9 18:49 Drug: predniSONE PO 40 mg PO once Route: PO; mb9 18:49 Follow up: Response: No adverse reaction mb9 Medication: 17:58 VIS not applicable for this client. mb9 Outcome: 18:52 Discharge ordered by . pb 19:13 Discharged to home ambulatory, km10 19:13 Condition: stable 19:13 Discharge instructions given to patient, Instructed on discharge instructions, follow up and referral plans. medication usage, Demonstrated understanding of instructions, follow-up care, medications, Prescriptions given X 4, 19:14 Patient left the ED. km10 Signatures: Dispatcher [employer] EDYosef Ahmadi MD MD cha Wilkerson, Priscila Mccollum, RN RN mb9 Mary Lou White Michelle RN RN me1 Suzette Shaffer RN RN km10
--- NOTE | 2025-01-08 18:53 | EDPHYS ---
Physician Documentation [facility] Name: Luis Hayward Age: 39 yrs Sex: Male : 1985 Arrival Date: 01/08/2025 Time: 16:22 Bed 19 Private MD: ED Physician Yosef Marquez HPI: 01/08 18:15 This 39 yrs old Male presents to ER via Ambulatory with complaints of pb Shortness Of Breath, Painful breathing. 18:15 The patient has shortness of breath at rest, with light activity. Onset: The pb symptoms/episode began/occurred 3 day(s) ago. Duration: The symptoms are continuous, and are steadily getting worse. The patient's shortness of breath is aggravated by coughing, is alleviated by nebulizer treatment, rest, application of supplemental oxygen. Associated signs and symptoms: Pertinent positives: non-productive cough, fever. Severity of symptoms: At their worst the symptoms were moderate in the emergency department the symptoms have improved moderately. The patient or guardian reports cough, described as moderate, difficulty breathing, flu symptoms, arthralgias, low-grade fever, myalgias. Severity of symptoms: At their worst the symptoms were moderate, in the emergency department the symptoms have improved, moderately. The patient has experienced similar episodes in the past, several times. Historical: - Allergies: 16:53 Naproxen; me1 - PMHx: 16:53 scoliosis; me1 - PSHx: 16:53 ear; me1 - Immunization history:: Adult Immunizations up to date. - Infectious Disease History:: Denies. - Social history:: Smoking status: Patient reports the use of cigarette tobacco products, smokes one pack cigarettes per day. - Family history:: not pertinent. ROS: 18:15 Constitutional: Negative for fever, chills, and weight loss, Eyes: Negative for injury, pb pain, redness, and discharge, ENT: Negative for injury, pain, and discharge, Neck: Negative for injury, pain, and swelling, Cardiovascular: Negative for chest pain, palpitations, and edema, Abdomen/GI: Negative for abdominal pain, nausea, vomiting, diarrhea, and constipation, Back: Negative for injury and pain, : Negative for injury, bleeding, discharge, and swelling, MS/Extremity: Negative for injury and deformity, Skin: Negative for injury, rash, and discoloration, Neuro: Negative for headache, weakness, numbness, tingling, and seizure, Psych: Negative for depression, anxiety, suicide ideation, homicidal ideation, and hallucinations, Allergy/Immunology: Negative for hives, rash, and allergies, Endocrine: Negative for neck swelling, polydipsia, polyuria, polyphagia, and marked weight changes, Hematologic/Lymphatic: Negative for swollen nodes, abnormal bleeding, and unusual bruising, 18:15 Respiratory: Positive for cough, "sounds productive", shortness of breath, wheezing, expiratory, Negative for orthopnea, 18:15 MS/extremity: Negative for acute changes, Exam: 18:16 Constitutional: This is a well developed, well nourished patient who is awake, alert, pb and in no acute distress. Head/Face: Normocephalic, atraumatic. Eyes: Pupils equal round and reactive to light, extra-ocular motions intact. Lids and lashes normal. Conjunctiva and sclera are non-icteric and not injected. Cornea within normal limits. Periorbital areas with no swelling, redness, or edema. ENT: Nares patent. No nasal discharge, no septal abnormalities noted. Tympanic membranes are normal and external auditory canals are clear. Oropharynx with no redness, swelling, or masses, exudates, or evidence of obstruction, uvula midline. Mucous membranes moist. Neck: Trachea midline, no thyromegaly or masses palpated, and no cervical lymphadenopathy. Supple, full range of motion without nuchal rigidity, or vertebral point tenderness. No Meningismus. Chest/axilla: Normal chest wall appearance and motion. Nontender with no deformity. No lesions are appreciated. Cardiovascular: Regular rate and rhythm with a normal S1 and S2. No gallops, murmurs, or rubs. Normal PMI, no JVD. No pulse deficits. Abdomen/GI: Soft, non-tender, with normal bowel sounds. No distension or tympany. No guarding or rebound. No evidence of tenderness throughout. Back: No spinal tenderness. No costovertebral tenderness. Full range of motion. Male : Normal genitalia with no discharge or lesions. Skin: Warm, dry with normal turgor. Normal color with no rashes, no lesions, and no evidence of cellulitis. MS/ Extremity: Pulses equal, no cyanosis. Neurovascular intact. Full, normal range of motion., bilateral aka Neuro: Awake and alert, GCS 15, oriented to person, place, time, and situation. Cranial nerves II-XII grossly intact. Motor strength 5/5 in all extremities. Sensory grossly intact. Cerebellar exam normal. Normal gait. Psych: Awake, alert, with orientation to person, place and time. Behavior, mood, and affect are within normal limits. 18:16 ECG was reviewed by the Attending Physician. 18:16 Respiratory: the patient does not display signs of respiratory distress, Respirations: no acute changes, is not noted, Breath sounds: bronchial sounds, that are mild, are scattered, decreased breath sounds, that are mild, are located in both bases, rhonchi, that are mild, are scattered, stridor, is not appreciated, + upper airway congestion. wheezing: expiratory is scattered, 18:16 Musculoskeletal/extremity: DVT Exam: No signs of deep vein thrombosis. no pain, no swelling, no tenderness, negative Homans' sign noted on exam, no appreciated bluish discoloration, no erythema, no increased warmth, Vital Signs: 16:51 BP 110 / 88; Pulse 85; Resp 17; Temp 98.1; Pulse Ox 99% ; Weight 79.38 kg; Height 5 ft. me1 9 in. ; Pain 10/10; 18:24 BP 126 / 92; Pulse 83; Resp 16; Pulse Ox 100% on R/A; mb9 16:51 Body Mass Index 25.84 (79.38 kg, 175.26 cm) me1 16:51 Pain Scale: Adult me1 MDM: 16:55 Medical Screening Exam initiated pb 18:18 Differential diagnosis: Anemia Anxiety Reaction asthma, Bronchitis CHF exacerbation, pb Chronic Obstructive Pulmonary Disease Myocardial Infarction pneumonia, Pneumothorax pulmonary edema, Pulmonary Embolism reactive airway disease, Sepsis Unstable Angina. Antibiotic administration: The patient is discharged and will get outpatient antibiotics, Zithromax. Differential Diagnosis: Obstructed Airway Bronchitis Influenza Upper Respiratory Infection Sinusitis Pharyngitis Otitis Media Allergic Rhinitis Asthma Exacerbation Viral Syndrome Pneumonia. Immunization status:. Data reviewed: vital signs, nurses notes, lab test result(s), EKG, radiologic studies, CT scan, plain films. Consideration of Admission/Observation Escalation of care including admission/observation considered. I considered the following discharge prescriptions or medication management in the emergency department Medications were administered in the Emergency Department. See MAR. Independent interpretation of the following test(s) in the Emergency Department EKG: See my EKG interpretation above. Test considered but Not performed: Ultrasound NO 2 D ECHO. Historians other than the Patient: PT WELL INFORMED. Counseling: I had a detailed discussion with the patient and/or guardian regarding the historical points, exam findings, and any diagnostic results supporting the discharge/admit diagnosis, lab results, radiology results, the need for outpatient follow up, for definitive care, a family practitioner, a gastroenterology technician. 01/08 16:48 Order name: Basic Metabolic Panel; Complete Time: 18:51 [facility] 01/08 16:48 Order name: CBC with Diff; Complete Time: 18:14 [facility] 01/08 16:48 Order name: D-Dimer; Complete Time: 18:14 [facility] 01/08 16:48 Order name: LFT's; Complete Time: 18:51 [facility] 01/08 16:48 Order name: Magnesium; Complete Time: 18:51 [facility] 01/08 16:48 Order name: NT PRO-BNP; Complete Time: 18:51 [facility] 01/08 16:48 Order name: Troponin HS; Complete Time: 18:51 [facility] 01/08 16:48 Order name: Blood Culture Adult (2) [facility] 01/08 16:48 Order name: Lactate w/ 2H reflex if indic.; Complete Time: 18:51 [facility] 01/08 16:48 Order name: COVID-19 Ag + Flu A+B Ag; Complete Time: 18:15 [facility] 01/08 16:48 Order name: XRAY Chest (1 view); Complete Time: 18:14 [facility] 01/08 16:48 Order name: CT Chest For PE Angio; Complete Time: 18:51 [facility] 01/08 16:48 Order name: EKG; Complete Time: 16:48 [facility] 01/08 16:48 Order name: Cardiac monitoring; Complete Time: 17:59 [facility] 01/08 16:48 Order name: EKG - Nurse/Tech; Complete Time: 18:00 [facility] 01/08 16:48 Order name: IV Saline Lock; Complete Time: 18:00 [facility] 01/08 16:48 Order name: Labs collected and sent; Complete Time: 18:00 [facility] 01/08 16:48 Order name: O2 Per Protocol; Complete Time: 18:00 [facility] 01/08 16:48 Order name: O2 Sat Monitoring; Complete Time: 18:00 pb EC:16 Rate is 75 beats/min. Rhythm is regular. QRS [place] is Normal. HI interval is normal. QRS pb interval is normal. QT interval is normal. No Q waves. T waves are Normal. No ST changes noted. Clinical impression: Normal ECG and No evidence of ischemia. Interpreted by me. Reviewed by me. Administered Medications: 17:50 Drug: Famotidine IVP 20 mg IVP once; dilute with 10 mL 0.9% NaCl; give over 2 minutes mb9 Route: IVP; Site: left antecubital; 18:04 Follow up: Response: No adverse reaction mb9 17:59 Drug: NS 0.9% IV 1000 ml IV at 1000 ml once; to be given as a bolus over 60 minutes mb9 Route: IV; Rate: 1000 ml; Site: left antecubital; 18:27 Follow up: Response: No adverse reaction; IV Status: Completed infusion mb9 17:59 Drug: Rocephin IV 1 grams IV at per protocol once; Given slow IV push per pharmacy mb9 instructions Route: IV; Rate: per protocol; Site: left antecubital; 18:32 Follow up: Response: No adverse reaction; IV Status: Completed infusion mb9 17:59 Drug: Aspirin PO Chewable Tablet 81 mg PO once Route: PO; mb9 18:05 Follow up: Response: No adverse reaction mb9 18:04 Drug: AZITHromycin PO 500 mg PO once Route: PO; mb9 18:27 Follow up: Response: No adverse reaction mb9 18:22 Drug: Decadron - Dexamethasone IVP 10 mg IVP once Route: IVP; Site: left antecubital; mb9 18:49 Follow up: Response: No adverse reaction mb9 18:49 Drug: Levalbuterol Inhalation 3.75 mg Inhalation once Route: Inhalation; mb9 18:49 Drug: Ipratropium Inhalation Aerosol 0.5 mg Inhalation once Route: Inhalation; mb9 18:49 Drug: predniSONE PO 40 mg PO once Route: PO; mb9 18:49 Follow up: Response: No adverse reaction mb9 Disposition Summary: 01/08/25 18:52 Discharge Ordered Notes: Location: Home pb Problem: new pb Symptoms: have improved pb Condition: Stable pb Diagnosis - Tobacco abuse counseling pb - Tobacco use pb - Acute bronchospasm pb - Acute upper respiratory infection, unspecified pb - Pleurisy pb Followup: pb - With: Private Physician - When: 2 - 3 days - Reason: Recheck today's complaints, Continuance of care, Re-evaluation by your physician Followup: pb - With: Sami Sebastian DO - When: 2 - 3 days - Reason: Recheck today's complaints, Re-evaluation by your physician Followup: pb - With: Manan Gastelum MD - When: 2 - 3 days - Reason: Recheck today's complaints, Re-evaluation by your physician Discharge Instructions: - Discharge Summary Sheet pb - Bronchospasm, Adult pb - Self-Destructive Behavior pb - Steps to Quit Smoking pb - Health Risks of Smoking pb - Upper Respiratory Infection, Adult pb - Asthma Attack pb - Cool Mist Vaporizer pb - Upper Respiratory Infection, Adult, [id number]-[id number] pb - Steps to Quit Smoking, [id number] pb - Cough, Adult, Egac-mw-[id number] pb - Aspirin and Your Heart [facility] - Cough, Adult [facility] Forms: - Medication Reconciliation Form pb - Antibiotic Education pb - Prescription Opioid Use pb - Patient Portal Instructions [facility] - Leadership Thank You Letter [facility] Prescriptions: - albuterol sulfate 90 mcg/actuation Inhalation HFA Aerosol Inhaler - inhale 2 puff INHALATION route every 4 to 6 hours as needed for shortness of pb breath or wheezing; 2 unit; Refills: 0, Product Selection Permitted - Tessalon Perles 100 mg Oral capsule - take 2 capsule ORAL route every 8 hours As needed; 30 capsule; Refills: 0, [facility] Product Selection Permitted - Prednisone 20 mg Oral Tablet - take 2 tablets ORAL route once daily for 5 days; 10 tablet; Refills: 0, Product pb Selection Permitted - Zithromax 500 mg Oral Tablet - take 1 tablet ORAL route once daily for 5 days; 5 tablet; Refills: 0, Product pb Selection Permitted Signatures: Dispatcher [employer] EDYosef Ahmadi MD MD cha Wilkerson, Mary Beth RN RN mb9 Yvette Clark RN RN me1 Corrections: (The following items were deleted from the chart) 16:49 16:48 BASIC METABOLIC PANEL+C.LAB.BRZ ordered. EDMS EDMS 16:49 16:48 CBC+H.LAB.BRZ ordered. EDMS EDMS 16:49 16:48 D-DIMER+COAG.LAB.BRZ ordered. EDMS EDMS 16:49 16:48 HEPATIC FUNCTION+C.LAB.BRZ ordered. EDMS EDMS 16:49 16:48 MAGNESIUM+C.LAB.BRZ ordered. EDMS EDMS 16:49 16:48 PROBNP+C.LAB.BRZ ordered. EDMS EDMS 16:49 16:48 Troponin High Sensitivity+C.LAB.BRZ ordered. EDMS EDMS 16:49 16:48 BLOOD CULTURE*+BA.LAB.BRZ ordered. EDMS EDMS 16:49 16:48 LACTATE+C.LAB.BRZ ordered. EDMS EDMS 16:49 16:48 COVID-19 Ag + Flu A+B Ag+I.LAB.BRZ ordered. EDMS EDMS
[2025-01-08 19:18] VITALS: TEMP 98.1
[2025-01-08 19:20] VITALS: BP 126/92; O2SAT 100
--- NOTE | 2025-01-11 12:26 | EKG ---
Test Date: 2025-01-08 Test Time: 17:52:10 Social Research Assistant: BETZAIDA MEASUREMENT RESULTS: Intervals: Rate: 75 WI: 128 QRSD: 84 QT: 382 QTc: 426 [place]: P: 73 WI: 128 QRS: 65 T: 67 INTERPRETIVE STATEMENTS: Normal sinus rhythm with sinus arrhythmia Normal ECG Compared to ECG 02/10/2015 15:19:36 Sinus tachycardia no longer present Electronically Signed On 01-11-25 12:20:28 CDT by Kapil Daly
== END 2025-01-08 19:14 | disposition home or self-care (01) ==
LOC: ER 16:22
DX: J98.01 Acute bronchospasm (principal); J06.9 Acute upper respiratory infection, unspecified; R09.1 Pleurisy; Z72.0 Tobacco use; Z71.6 Tobacco abuse counseling; Z11.52 Encounter for screening for COVID-19
CPT/HCPCS: 36415; 71045; 71275; 80048; 80076; 83605; 83735; 83880; 84484; 85025; 85379; 87040; 87205; 87428; 93005; 96365; 96375; 99285; J0696; J1100; J7030; J7512; J7614; J7644; Q9967